=== PATIENT | male | born 1935 | race Caucasian/White ===

== ENCOUNTER 2019-10-29 08:21 | Outpatient (CLI) | payer MEDICARE, OTHER, SELFPAY ==
--- NOTE | 2019-10-29 08:45 | USCV_ITS ---
Artie Abraham Age: 84 Gender: M : 1935 Exam Date: 10/29/2019 08:49 Ordering Phys: Eliane العلي MD ([email or web address]) Technologist: Ilene Guaman [place] [facility] [place]: asymptomatic bilateral carotid stenosis Risk Factors: None Previous Vascular Surgery: None Right Brachial BP: / Left Brachial BP: / Right Left Velocity (cm/s) Spectral Plaque Velocity (cm/s) Spectral Plaque Syst/Diast Broadening Syst/Diast Broadening 102.50/15.40 Prox CCA 51.90 / 7.90 55.20/ 12.40 Mid CCA 30.30 / 7.70 55.20/ 10.90 Homo Distal CCA 29.50 / 5.60 76.10/ 20.50 Homo Prox ICA 28.00 / 7.80 Hetro 79.80/ 20.50 Mid ICA 80.20 / 23.00 52.50/ 15.30 Distal ICA 46.20 / 15.60 103.90 Homo ECA 89.70 Homo 0.78 ICA/CCA 1.54 Antegrade Vertebral Antegrade 28.20/ 4.30 cm/s 39.00/ 9.90 cm/s Tri Subclavian Tri 73.80 80.20 FINDINGS Moderate heterogeneous plaques at the bifurcations and proximal internal carotid arteries bilaterally. Intimal thickening in the common carotid arteries bilaterally Antegrade flow in the vertebral arteries bilaterally Normal Doppler flow velocities in the external carotid arteries bilaterally CONCLUSIONS Moderate heterogeneous plaques at the bifurcations and proximal internal carotid arteries bilaterally with velocity elevation consistent with 16-49% stenosis. Intimal thickening in the common carotid arteries bilaterally Compared to the study from 08/21/2017, there may not be a significant change Dr Eliane العلي MD [facility] (Electronically Signed) Final Date: 30 October 2019 09:50 S
[2019-12-02 16:23] LABS: Blood Urea Nitrogen 11 mg/dL (8-23)
== END 2019-10-29 08:22 | disposition home or self-care (01) ==
LOC: RAD 08:22
PROVIDERS: Family Provider Nurse Practitioner Family; PCP Nurse Practitioner Family; Visit Provider Internal Medicine Cardiovascular Disease
DX: I65.23 Occlusion and stenosis of bilateral carotid arteries (principal)
CPT/HCPCS: 93880

== ENCOUNTER 2019-11-25 06:25 | Day surgery (SDC) | payer MEDICARE, OTHER, SELFPAY ==
[2019-11-22 10:33] VITALS: BMI 25.0
--- NOTE | 2019-11-22 10:37 | ECG_ITS ---
Measurements Intervals [place] Rate: 82 P: 71 IN: 200 QRS: -41 QRSD: 95 T: 70 QT: 357 QTc: 419 SINUS RHYTHM MARKED LEFT AXIS DEVIATION [QRS AXIS < -30] NONSPECIFIC T-WAVE ABNORMALITY No previous ECG available for comparison Electronically Signed On 11-22-2019 15:55:59 PROJECT INSPECTOR by Paco Quezada M.D. [email or web address]
[2019-11-25] VITALS (20 sets, daily range): BP systolic 108–164; BP diastolic 56–113; PULSE 61–93; RESP 13–21; TEMP 36.1–36.6; O2SAT 89–100
[2019-11-25] MEDS: sodium chloride 0.9% 1,000 ML 30 ML IV (06:50)
--- NOTE | 2019-11-25 06:53 | ANES.PREANE2 ---
Pre-Anesthetic Assessment Pre-Anesthetic Assessment: Height/Weight: Height 1.65 m Weight 68.039 kg Temp Pulse Resp BP Pulse Ox 97.9 F 74 18 125/75 94 11/25/19 06:27 11/25/19 06:27 11/25/19 06:27 11/25/19 06:27 11/25/19 06:27 Preop Diagnosis: Recurrent right inguinal hernia Proposed Procedure: Operation Date: 11/25/19 08:00 Proposed Procedures p Laparoscopic poss open Inguinal Hernia Repair w/Mesh 88815 K40.91(Right) - Alonso Freeman MD Last intake: Intake Last Liquid Date 11/24/19 Last Solid Date 11/24/19 Social: Packs per day: 1/2 Pack years: 55 Exam: Pre-Anes Outpt Exam: alert, oriented x 3, clear to auscultation bilaterally and regular rate & rhythm Airway: Submandibular: WNL Cervical ROM: Other MP: 2 Dentition: False Pulmonary: Pulmonary: COPD Comments: breathing feels good CV/HEM: CV/HEM: HTN : Comments: BPH Metabolic: Metabolic: Hyperlipidemia Musc/skel: Musc/skel: Lower Back Pain Anesthetic Plan: ASA status: II Anesthesia: General PFSH Anesthesia PFSH: Social History Smoking and tobacco status: current every day smoker Alcohol intake: never Lives independently: Yes Household members: none Marital status: Current occupational status: retired Data Anesthesia Cardiac Studies: No Data to Display
[2019-11-25] MEDS: famotidine 20 mg/2 mL INJ IVP (07:31)
--- NOTE | 2019-11-25 08:12 | PM.HPUD ---
H&P update H&P Update: DATE OF SURGERY/PROCEDURE: 11/25/19 DATE H&P PERFORMED: 11/18/19 H&P UPDATE INFORMATION: H&P completed within last 30 days and No changes to prior documentation PLANNED PROCEDURE: Operation Date: 11/25/19 08:00 Proposed Procedures p Laparoscopic poss open Inguinal Hernia Repair w/Mesh 29442 K40.91(Right) - Alonso Freeman MD Full H&P Perinent History: Medical/Surgical History: Medical History (Updated 11/18/19 @ 14:05 by Alonso Freeman MD) BPH (benign prostatic hyperplasia) (Acute) Hyperlipidemia (Acute) Hypertension (Acute) Family History: Family History (Updated 11/18/19 @ 13:41 by Abimbola Wesley LPN) Other Diabetes Denies family history of Anesthesia complication Bleeding disorder Social History: Social History Smoking and tobacco status: current every day smoker Alcohol intake: never Lives independently: Yes Household members: none Marital status: Current occupational status: retired
--- NOTE | 2019-11-25 09:55 | PM.OP ---
Operative Report Date of procedure: November 25, 2019 Pre-op Diagnosis: Recurrent right inguinal hernia Post-op Diagnosis: Recurrent incarcerated indirect right inguinal hernia Procedure Done: Laparoscopic total extraperitoneal repair of recurrent incarcerated right inguinal hernia with ultra Pro mesh Implants: Ultra Pro 15 x 10 cm mesh Pathology: none sent Surgeon: Alonso Freeman Anesthesia: General Estimated blood loss (mL): 10 Condition: stable Disposition: PACU Procedure: The patient was taken to the operating room. After IV antibiotic was administered, the abdomen was prepped and draped in a sterile manner. Using a 15 blade, a 1.0 cm transverse incision was made infraumbilically on the right side. Subcutaneous tissue was divided using electrocautery and the anterior rectus sheath divided using an 11 blade. The rectus muscle was retracted laterally and the extraperitoneal space identified. A 11 mm port was placed and 12 mm of pneumoperitoneum was created. A 10 mm 30? scope was introduced and the retrorectus space was opened using the camera up to the pubic symphysis and 5 mm ports were placed in the midline, one 2-fingerbreadths above the pubic symphysis and the other midway between these two ports under direct visualization. Blunt dissection was carried out to open up the tissue in the midline and to the pubic symphysis, which was identified. The dissection was then carried laterally where the iliopubic tract was identified. There was no femoral, obturator or direct hernia noted. The inferior epigastric artery was identified and dissection was carried posterior to it and laterally, the space was opened up to the level of the umbilicus superior to the anterior superior iliac spine. I then proceeded to dissect out the spermatic cord and the indirect hernial sac which was incarcerated was reduced . There was a small opening in the peritoneum and a Verres needle was placed in the right upper quadrant to decompress the abdominal cavity. 15 x 10cm Ultrapro mesh was rolled and introduced through the 10 mm port and then rolled laterally and apposed well against the abdominal wall to cover the myopectineal orifice completely. The mesh was secured in place using secure straps. The extraperitoneal space was desufflated under direct visualization to ensure no slippage of hernial sac under the mesh. All ports were removed, the anterior rectus fascia at the infraumbilical port closed using figure of eight 0 Vicryl sutures, subcutaneous tissue approximated using 3-0 Vicryl sutures and skin at all three port sites were closed using running subcuticular 4-0 Monocryl sutures and Dermabond. 10 mL of 0.5% Marcaine was infiltrated at the port sites. The patient was stable throughout the procedure.
--- NOTE | 2019-11-25 10:19 | SUR.PHASEI ---
PT AWAKES EASILY ON RA NO DISTRESS ABD SOFT AND SITES D/I
[2019-11-25] MEDS: fentaNYL 50 mcg/mL INJ 2mL IVP ×2 (10:34→10:39)
[2019-11-25] MEDS: morphine 4 mg/mL SDV 1 mL 2 MG IVP (10:43)
--- NOTE | 2019-11-25 11:12 | SUR.PHASEI ---
PT AWAKE ALERT NO DISTRESS, SATS 94% ON RA PT REQUESTS DR STREETER TO SIP ON FAMILY IN ROOM.
[2019-11-25] MEDS: HYDROcodone-acetaminophen 5-325 mg Tablet 1 TAB PO (11:17)
== END 2019-11-25 12:00 | disposition home or self-care (01) ==
PROVIDERS: Family Provider Nurse Practitioner Family; PCP Nurse Practitioner Family; Visit Provider Surgery
PROC: (CPT 49650; principal; 2019-11-25 08:00)
DX: K40.31 Unilateral inguinal hernia, with obstruction, without gangrene, recurrent (principal); Z79.82 Long term (current) use of aspirin; N40.0 Benign prostatic hyperplasia without lower urinary tract symptoms; E78.5 Hyperlipidemia, unspecified; I10 Essential (primary) hypertension; Z83.3 Family history of diabetes mellitus; F17.210 Nicotine dependence, cigarettes, uncomplicated
CPT/HCPCS: 49651; 12345; 93005; 96374; J0690; J2001; J2270; J2370; J2405; J2704; J3010; J3490; J7030

== ENCOUNTER 2019-12-01 17:18 | Emergency (ER) | payer MEDICARE, OTHER, SELFPAY ==
[2019-12-01 17:26] VITALS: BP 129/83; PULSE 125; RESP 16; TEMP 36.9; O2SAT 96; BMI 25.0
--- NOTE | 2019-12-01 17:33 | ED_ITS ---
Entered by Deepti Parrish, acting as scribe for HPI - General Adult General: Chief complaint: General Medical Stated complaint: surgery complication Time Seen by Provider: 12/01/19 17:36 History of Present Illness: HPI narrative: 84 yo female presents with surgery complications. Pt states that he had a hernia repair done on Monday. Pt states that he coughed on Monday, felt something pop and has pain now. Pt states that he as major bruising. Pt states that he is urinating like normal. MD complaint: surgery complications. Onset (ago): day(s) Location: genitals Radiation: non-radiation Severity: moderate Quality: aching Pain Consistency: constant Relieving factors: none Exacerbating factors: none Associated symptoms: Reports other (bruising); Deny chest pain, diaphoresis, dyspnea, malaise, rash, palpitations or syncope Review of Systems Const: Denies: fever, chills, body aches, change in appetite, change in weight, malaise, night sweats, diaphoresis or change in sleep pattern Eyes: Denies: change in vision, blurry vision, blind spots, photophobia, eye discomfort, eye discharge, eye redness, yellow eyes or dry eyes ENMT: Denies: throat pain, uvular edema, enlarged tonsils, painful swallowing, hoarseness, mouth pain, swelling of lips/tongue, oral sores/lesions or bleeding gums Card: Denies: chest pain, palpitations, irregular heart rhythm, edema, swelling of feet/ankles, lightheadedness, syncope, pre-syncope or shortness of breath on exertion Resp: Denies: shortness of breath, productive cough, non-productive cough or wheezing : Reports: genital pain, scrotal swelling and other (bruising) Skin/Breast: Denies: rash, itching, redness, sensitivity to light, skin pain or skin tenderness Neuro: Denies: lack of coordination, difficulty walking, frequent falls, dizziness or vertigo Psych: Denies: sleeping more, hopelessness or loss of interest Endo: Denies: excessive urination, excessive thirst or tired all the time PFSH ED PFSH: Statuses (acute, chronic, etc) shown below reflect problem list status as previously entered and may not be historically accurate Medical History BPH (benign prostatic hyperplasia) (Acute) Hyperlipidemia (Acute) Hypertension (Acute) Surgical History H/O bilateral inguinal hernia repair (Acute) H/O colonoscopy (Acute) long time ago History of corneal transplant (Acute) History of hemorrhoidectomy (Acute) History of knee surgery (Acute) Right knee replacement History of shoulder surgery (Acute) Right Status post right inguinal hernia repair (Acute) 11/25/2019: Laparoscopic repair of recurrent right inguinal hernia Family History Other Diabetes Denies family history of Anesthesia complication Bleeding disorder Social History Smoking and tobacco status: current every day smoker Alcohol intake: never Lives independently: Yes Household members: none Marital status: Current occupational status: retired Physical Exam HENMT: THROAT: no uvular edema Neck/C-Spine: COMMON NORMALS: no JVD Chest: COMMONS NORMALS: inspection of chest normal Resp: COMMON NORMALS: normal respiratory effort Cardio: COMMON NORMALS: no JVD, regular rate and regular rhythm RATE: regular rate RHYTHM: regular rhythm GI: COMMON NORMALS: normal to inspection, nondistended, normoactive bowel sounds : MALE GROIN/PERINEUM EXAM: Yes ecchymosis PENIS: ecchymosis TESTES: Yes testicular swelling Course ED course: Patient was examined in room 13, daughter in law at bedside. he is having no urinary problems. He does have discomfort that began on Monday after coughing. He has significant erythema. Dr Freeman was contacted by phone and has requested patient call in the morning for appointment tomorrow. Discussed with family who states patient will need something else for pain. Vital Signs: Vital signs: Vital Signs Temperature 98.5 F 12/01/19 17:26 Pulse Rate 125 H 12/01/19 17:26 Respiratory Rate 18 12/01/19 17:48 Blood Pressure 129/83 12/01/19 17:26 Pulse Oximetry 96 12/01/19 17:48 Discharge Plan Discharge Patient Disposition: Home, Self-Care Clinical Impression: Status post right inguinal hernia repair Condition: Stable Prescriptions: New hydrocodone-acetaminophen 7.5-325 mg tablet 1 tab PO Q8H PRN (Reason: pain) Qty: 7 RF: 0 No Action finasteride 5 mg tablet 5 mg PO QDAY RF: 0 lisinopril 20 mg tablet 20 mg PO QDAY RF: 0 pravastatin [Pravachol] 20 mg tablet 20 mg PO QDAY RF: 0 tramadol 50 mg tablet 50 mg PO QDAY RF: 0 aspirin [Adult Low Dose Aspirin] 81 mg tablet,delayed release (DR/EC) 81 mg PO QDAY RF: 0 omega-3 fatty acids 1,000 mg capsule 1,000 mg PO QDAY RF: 0 tamsulosin 0.4 mg capsule 0.4 mg PO BID Qty: 60 RF: 12 Roosevelt 5-325 mg tablet 1 tab PO Q6H 7 Days Qty: 20 RF: 0 Colace 100 mg capsule 100 mg PO BID Qty: 30 RF: 0 Discharge Orders: Discharge Order (Routine); Ordered 12/01/19 Ordered By: Sharona Whittington Referrals: Dakota Hyatt, NUT [employer]READER [Primary Care Provider] - Discharge Diet: Usual diet Discharge Activity: Limit activity as instructed Activity Restrictions/Additional Instructions: Patient is to contact Dr Brown office in the AM for appointment tomorrow. Use ice for swelling. Coding Level of Care Code ED Food Stylist for Chg Fwd The documentation recorded by the Francois wong Kialy, accurately reflects the service I personally performed and the decisions made by Pk torres Connie,
--- NOTE | 2019-12-01 17:45 | PC.NURSE ---
pt has hematoma at surgery site
[2019-12-01 17:48] VITALS: RESP 18; O2SAT 96
[2019-12-01] MEDS: morphine 4 mg/mL SDV 1 mL 2 MG IVP (17:48)
[2019-12-01] MEDS: ondansetron 2 mg/ML SDV 2 mL 4 MG IVP (17:48)
[2019-12-01 18:08] VITALS: BP 136/68; PULSE 92; RESP 18; O2SAT 93
== END 2019-12-01 18:09 | disposition home or self-care (01) ==
LOC: ER 18:44
PROVIDERS: Emergency Provider Emergency Medicine Emergency Medical Services; Family Provider Nurse Practitioner Family; PCP Nurse Practitioner Family
DX: G89.18 Other acute postprocedural pain (principal); Z98.890 Other specified postprocedural states; Z79.82 Long term (current) use of aspirin; E78.5 Hyperlipidemia, unspecified; I10 Essential (primary) hypertension; F17.210 Nicotine dependence, cigarettes, uncomplicated
CPT/HCPCS: 96374; 96375; 99281; 99282; 99283; J2270; J2405

== ENCOUNTER 2019-12-02 15:10 | Outpatient (CLI) | payer MEDICARE, OTHER, SELFPAY ==
--- NOTE | 2019-12-02 | CT_ITS ---
WS: [id number] CT ABDOMEN PELVIS TECHNIQUE: Contrast-enhanced CT of the abdomen and pelvis with coronal and sagittal reformatted image s. CLINICAL INFORMATION: PAIN S/P RIGHT INGUINAL HERNIA REPAIR COMPARISON: None. DLP: 575.[address] scans at [facility] use at least one of these dose optimization techniques: automat ed exposure control; mA and/or kV adjustment per patient size (includes targeted exams where dose is matched to clinical indication); or iterative reconstruction. FINDINGS: Diffuse fatty infiltration of the liver. Normal portal vein and splenic vein. Normal spleen. Normal g astroesophageal junction. Bibasilar atelectasis. Subcutaneous emphysema along the right greater than left lower chest wall and upper abdomen. This is likely related to recent surgery. No visualized pneu mothorax in the lung bases. Recent postoperative changes right inguinal hernia repair. Fluid and blood products along the right i nguinal canal and scrotal sac some of which is likely postoperative in nature. Somewhat prominent hem atoma along the right proximal inguinal canal. No visualized herniated bowel. No subcutaneous fluid c ollections. Adrenal glands are normal. Normal renal parenchymal enhancement. No hydronephrosis. Normal spleen. No rmal gastroesophageal junction. Mild pancreatic fatty atrophy. Aortic calcification. Small infrarenal abdominal aortic aneurysm measuring 2.6 cm in AP dimension. Sigmoid constipation. Diverticulosis. No evidence of acute diverticulitis. No evidence of small or large bowel obstruction. Tiny fat-containing umbilical hernia. Normal appendi x in the right lower quadrant. Chronic compression of the L4 superior endplate with endplate Schmorl' s node is unchanged since the prior MRI in 2012. There is an enhancing enlarged prostate. Recommend c orrelation PSA. Message left for Alonso Freeman MD at 12/02/2019 5:[address]/CT abdomen pelvis w con* [id number] IMPRESSION: 1. Recent postoperative changes right inguinal hernia repair. 2. Fluid with blood products and hematoma along the inguinal canal extending i nto the scrotal sac. Some of this is likely postoperative in etiology consideri ng recent surgery. There is Notable prominent hematoma along the proximal ingui nal canal. No herniated bowel. 3. Bibasilar atelectasis. 4. Small amount of subcutaneous air along the right greater than left lower ch est wall and upper abdomen also likely postoperative. No pneumothorax. 5. Small infrarenal abdominal aortic aneurysm measuring 2.6 cm in AP dimension . 6. No hydronephrosis in either kidney. 7. Heterogeneously enhancing slightly enlarged prostate measuring 3.7 x 4.8 cm . Recommend correlation PSA.
[2019-12-02] MEDS: iohexol 300 mg/mL 100 mL Btl IV (16:38)
== END 2019-12-02 15:11 | disposition home or self-care (01) ==
LOC: RADWPI 15:20
PROVIDERS: Family Provider Nurse Practitioner Family; PCP Nurse Practitioner Family; Visit Provider Surgery
DX: T81.89XA Other complications of procedures, not elsewhere classified, initial encounter (principal); G89.18 Other acute postprocedural pain; J98.11 Atelectasis; I71.4 Abdominal aortic aneurysm, without rupture; N40.0 Benign prostatic hyperplasia without lower urinary tract symptoms
CPT/HCPCS: 36415; 74177; 82565; 84520

== ENCOUNTER → 2020-01-01 11:01 | Outpatient (BNVA) | payer MEDICARE, OTHER, SELFPAY | PROVIDERS: Family Provider Nurse Practitioner Family; PCP Nurse Practitioner Family; Visit Provider Urology | DX: N40.0 Benign prostatic hyperplasia without lower urinary tract symptoms (principal); N40.1 Benign prostatic hyperplasia with lower urinary tract symptoms; R31.0 Gross hematuria | CPT/HCPCS: 81001 ==

== ENCOUNTER → 2020-03-23 10:14 | Outpatient (BNVA) | payer MEDICARE, OTHER, SELFPAY | PROVIDERS: Family Provider Nurse Practitioner Family; PCP Nurse Practitioner Family; Visit Provider Internal Medicine Cardiovascular Disease | DX: E78.5 Hyperlipidemia, unspecified (principal); I25.10 Atherosclerotic heart disease of native coronary artery without angina pectoris; I77.810 Thoracic aortic ectasia; I10 Essential (primary) hypertension; I65.23 Occlusion and stenosis of bilateral carotid arteries | CPT/HCPCS: 80061 ==

== ENCOUNTER → 2021-04-20 10:37 | Outpatient (BNVA) | payer MEDICARE, OTHER, SELFPAY | PROVIDERS: Family Provider Nurse Practitioner Family; PCP Nurse Practitioner Family; Visit Provider Internal Medicine Cardiovascular Disease | DX: E78.5 Hyperlipidemia, unspecified (principal); E87.5 Hyperkalemia; R06.02 Shortness of breath; R07.9 Chest pain, unspecified | CPT/HCPCS: 80048 ==

== ENCOUNTER → 2021-09-08 10:39 | Outpatient (BNVA) | payer MEDICARE, OTHER, SELFPAY | PROVIDERS: Family Provider Nurse Practitioner Family; PCP Nurse Practitioner Family; Visit Provider Urology | DX: N40.1 Benign prostatic hyperplasia with lower urinary tract symptoms (principal); R97.20 Elevated prostate specific antigen [PSA] | CPT/HCPCS: 81003; 84153 ==

== ENCOUNTER → 2021-11-30 09:21 | Outpatient (BNVA) | payer MEDICARE, OTHER, SELFPAY | PROVIDERS: Family Provider Nurse Practitioner Family; PCP Family Medicine; Visit Provider Urology | DX: R97.20 Elevated prostate specific antigen [PSA] (principal) | CPT/HCPCS: 84153 ==

== ENCOUNTER → 2021-12-07 10:16 | Outpatient (BNVA) | payer MEDICARE, OTHER, SELFPAY | PROVIDERS: Family Provider Nurse Practitioner Family; PCP Family Medicine; Visit Provider Urology | DX: N40.1 Benign prostatic hyperplasia with lower urinary tract symptoms (principal); R97.20 Elevated prostate specific antigen [PSA]; R39.89 Other symptoms and signs involving the genitourinary system | CPT/HCPCS: 81003 ==

== ENCOUNTER 2022-03-24 09:20 | Outpatient (CLI) | payer MEDICARE, OTHER, SELFPAY | END 2022-03-24 09:21 | disposition home or self-care (01) | LOC: LAB 09:22 | PROVIDERS: PCP Family Medicine; Visit Provider Urology | DX: R97.20 Elevated prostate specific antigen [PSA] (principal) | CPT/HCPCS: 84153 ==

== ENCOUNTER → 2022-03-31 09:42 | Outpatient (BNVA) | payer MEDICARE, OTHER, SELFPAY | PROVIDERS: PCP Family Medicine; Visit Provider Urology | DX: N40.1 Benign prostatic hyperplasia with lower urinary tract symptoms (principal); R39.89 Other symptoms and signs involving the genitourinary system; R97.20 Elevated prostate specific antigen [PSA] | CPT/HCPCS: 81003; 99213 ==

== ENCOUNTER → 2022-07-21 10:01 | Outpatient (BNVA) | payer MEDICARE, OTHER, SELFPAY | PROVIDERS: PCP Family Medicine; Visit Provider Family Medicine | DX: R97.20 Elevated prostate specific antigen [PSA] (principal); R31.0 Gross hematuria | CPT/HCPCS: 84153 ==

== ENCOUNTER → 2022-07-28 09:42 | Outpatient (BNVA) | payer MEDICARE, OTHER, SELFPAY | PROVIDERS: PCP Family Medicine; Visit Provider Urology | DX: N40.1 Benign prostatic hyperplasia with lower urinary tract symptoms (principal); R31.0 Gross hematuria; R97.20 Elevated prostate specific antigen [PSA]; R39.89 Other symptoms and signs involving the genitourinary system | CPT/HCPCS: 81003; 99213 ==

== ENCOUNTER → 2022-10-18 10:21 | Outpatient (BNVA) | payer MEDICARE, OTHER, SELFPAY | PROVIDERS: PCP Family Medicine; Visit Provider Family Medicine | DX: R97.20 Elevated prostate specific antigen [PSA] (principal); E87.5 Hyperkalemia; E78.5 Hyperlipidemia, unspecified; I10 Essential (primary) hypertension; Z00.00 Encounter for general adult medical examination without abnormal findings; I25.10 Atherosclerotic heart disease of native coronary artery without angina pectoris | CPT/HCPCS: 80053; 80061; 83690; 85025; 86140 ==

== ENCOUNTER → 2022-10-26 10:26 | Outpatient (BNVA) | payer MEDICARE, OTHER, SELFPAY | PROVIDERS: PCP Family Medicine; Visit Provider Internal Medicine Cardiovascular Disease | DX: I25.10 Atherosclerotic heart disease of native coronary artery without angina pectoris (principal); I65.23 Occlusion and stenosis of bilateral carotid arteries; I10 Essential (primary) hypertension; E78.5 Hyperlipidemia, unspecified; I77.810 Thoracic aortic ectasia; F17.200 Nicotine dependence, unspecified, uncomplicated | CPT/HCPCS: 99214 ==

== ENCOUNTER 2022-11-04 11:36 | Outpatient (CLI) | payer MEDICARE, OTHER, SELFPAY ==
--- NOTE | 2022-11-04 12:00 | USCV_ITS ---
Artie Abraham Age: 87 Gender: M : 1935 Exam Date: 11/04/2022 11:51 Ordering Phys: Eliane العلي MD ([email or web address]) Technologist: [place] [facility] [place]: cca disease Risk Factors: Previous Vascular Surgery: Right Brachial BP: / Left Brachial BP: / Right Left Velocity (cm/s) Spectral Plaque Velocity (cm/s) Spectral Plaque Syst/Diast Broadening Syst/Diast Broadening 53.75/ 9.90 Prox CCA 44.20 / 7.10 48.15/ 10.05 Mid CCA 48.60 / 5.30 53.95/ 9.35 Hetro Distal CCA 48.60 / 7.10 Hetro 70.50/ 15.60 Hetro Prox ICA 53.10 / 10.60 Hetro 72.70/ 18.50 Mid ICA 71.60 / 14.20 64.50/ 13.40 Distal ICA 64.60 / 14.20 75.95 ECA 82.30 1.42 ICA/CCA 1.47 Antegrade Vertebral Antegrade 22.30/ 4.70 cm/s 48.90/ 12.60 cm/s Bi Subclavian Bi 61.90 69.00 FINDINGS Comparison:. 10/29/19. No significant elevation of systolic or diastolic velocities. Mild blunting of the waveforms. Moderate bilateral carotid atherosclersis. Antegrade vertebral arteries. CONCLUSIONS Bilateral ICA stenosis less than 50%. Moderate carotid atherosclerosis. Mild progression since 2019. Dr. Yoko Cooper DO (Electronically Signed) Final Date: 08 November 2022 15:54 S
== END 2022-11-04 11:37 | disposition home or self-care (01) ==
LOC: RAD 11:38
PROVIDERS: PCP Family Medicine; Visit Provider Internal Medicine Cardiovascular Disease
DX: I65.23 Occlusion and stenosis of bilateral carotid arteries (principal); I77.9 Disorder of arteries and arterioles, unspecified
CPT/HCPCS: 93880

== ENCOUNTER → 2022-12-05 10:00 | Outpatient (BNVA) | payer MEDICARE, OTHER, SELFPAY | PROVIDERS: PCP Family Medicine; Visit Provider Family Medicine | DX: R97.20 Elevated prostate specific antigen [PSA] (principal); R31.0 Gross hematuria | CPT/HCPCS: 84153 ==

== ENCOUNTER → 2022-12-13 10:30 | Outpatient (BNVA) | payer MEDICARE, OTHER, SELFPAY | PROVIDERS: PCP Family Medicine; Visit Provider Urology | DX: R31.0 Gross hematuria (principal); N40.1 Benign prostatic hyperplasia with lower urinary tract symptoms; N13.8 Other obstructive and reflux uropathy; R97.20 Elevated prostate specific antigen [PSA] | CPT/HCPCS: 51798; 99214 ==

== ENCOUNTER 2023-03-15 11:00 | Outpatient (CLI) | payer MEDICARE, OTHER, SELFPAY ==
--- NOTE | 2023-03-15 11:14 | XRR_ITS ---
PROCEDURE INFORMATION: Exam: XR Chest Exam date and time: 03/15/2023 11:40 AM Age: 88 years old Clinical indication: Condition or disease; Lung condition and disease; Copd; Complications not specified; Cough; Patient HX: HX of prostate cancer TECHNIQUE: Imaging protocol: Radiologic exam of the chest. Views: 2 views. COMPARISON: CR XR chest 2V* [id number] 05/02/2016 9:30 AM FINDINGS: Lungs: Unremarkable. No consolidation. Pleural spaces: Unremarkable. No pleural effusion. No pneumothorax. Heart/Mediastinum: Unremarkable. No cardiomegaly. Bones/joints: Unremarkable. XR/XR chest 2V* [id number] IMPRESSION: No acute findings.
== END 2023-03-15 11:01 | disposition home or self-care (01) ==
LOC: RAD 11:05
PROVIDERS: PCP Family Medicine; Visit Provider Family Medicine
DX: R05.9 Cough, unspecified (principal); E55.9 Vitamin D deficiency, unspecified; E53.8 Deficiency of other specified B group vitamins; Z51.81 Encounter for therapeutic drug level monitoring
CPT/HCPCS: 71046; 80053; 82306; 82607; 83880; 85025; 86141

== ENCOUNTER → 2023-03-30 08:36 | Outpatient (BNVA) | payer MEDICARE, OTHER, SELFPAY | PROVIDERS: PCP Family Medicine; Visit Provider Urology | DX: N40.1 Benign prostatic hyperplasia with lower urinary tract symptoms (principal); N13.8 Other obstructive and reflux uropathy; R97.20 Elevated prostate specific antigen [PSA]; R39.89 Other symptoms and signs involving the genitourinary system | CPT/HCPCS: 36415; 51798; 81003; 84153; 99213 ==

== ENCOUNTER → 2023-05-04 11:09 | Outpatient (BNVA) | payer MEDICARE, OTHER, SELFPAY | PROVIDERS: PCP Family Medicine; Visit Provider Family Medicine | DX: N40.1 Benign prostatic hyperplasia with lower urinary tract symptoms (principal); R97.20 Elevated prostate specific antigen [PSA]; Z51.81 Encounter for therapeutic drug level monitoring | CPT/HCPCS: 80053; 84153; 85025 ==

== ENCOUNTER → 2023-05-10 09:36 | Outpatient (BNVA) | payer MEDICARE, OTHER, SELFPAY | PROVIDERS: PCP Family Medicine; Visit Provider Internal Medicine Cardiovascular Disease | DX: I10 Essential (primary) hypertension | CPT/HCPCS: 36415; 83880 ==

== ENCOUNTER → 2023-05-10 10:32 | Outpatient (BNVA) | payer MEDICARE, OTHER, SELFPAY | PROVIDERS: PCP Family Medicine; Visit Provider Family Medicine | DX: R07.9 Chest pain, unspecified (principal); I10 Essential (primary) hypertension; I25.10 Atherosclerotic heart disease of native coronary artery without angina pectoris; R97.20 Elevated prostate specific antigen [PSA]; I35.1 Nonrheumatic aortic (valve) insufficiency; I65.23 Occlusion and stenosis of bilateral carotid arteries; E78.5 Hyperlipidemia, unspecified; I77.810 Thoracic aortic ectasia | CPT/HCPCS: 93005; 99214 ==

== ENCOUNTER 2023-05-22 09:28 | Outpatient (CLI) | payer MEDICARE, OTHER, SELFPAY ==
[2023-05-22 10:40] LABS: NT Pro B Type Natriuretic Pept 477 pg/mL (0-450)
== END 2023-05-22 09:29 | disposition home or self-care (01) ==
PROVIDERS: PCP Family Medicine; Visit Provider Internal Medicine Cardiovascular Disease
DX: I10 Essential (primary) hypertension (principal)
CPT/HCPCS: 36415; 83880

== ENCOUNTER 2023-05-30 08:40 | Outpatient (CLI) | payer MEDICARE, OTHER, SELFPAY ==
--- NOTE | 2023-05-30 09:30 | USCV_ITS ---
Artie Abraham Age: 88 Gender: M : 1935 Exam Date: 05/30/2023 08:50 Ordering Phys: Eliane العلي MD ([email or web address]) Technologist: Kandy Peng [place] [facility] [place]: DILATED AO ROOT BP: 130 / 70 HR: 82 Rhythm: Sinus Technical Quality: Adequate MEASUREMENTS (Male / Female) Normal Values 2D ECHO LV Diastolic Diameter PLAX 5.0 cm 4.2 - 5.9 / 3.9 - 5.3 cm LV Systolic Diameter PLAX 4.5 cm LV Chamber Size 3.9 cm IVS Diastolic Thickness 1.0 cm 0.6 - 1.0 / 0.6 - 0.9 cm IVS Systolic Thickness 1.3 cm LVPW Diastolic Thickness 1.1 cm 0.6 - 1.0 / 0.6 - 0.9 cm LVPW Systolic Thickness 1.2 cm RV Chamber Size 3.1 cm LVOT Diameter 2.0 cm LV Ejection Fraction 2D Teich 23.0 % LV Ejection Fraction MOD 2C 50.1 % LV Ejection Fraction 2C AL 50.5 % LA Diameter 4.1 cm LA Width 3.4 cm LA Height 3.9 cm RA Width 3.4 cm RA Height 4.3 cm Aorta at Sinotubular Diameter 4.0 cm IVC Diameter 1.7 cm M-MODE Aortic Annulus Diameter 4.0 cm LA Ao Ratio MM 1.3 MV E Point Septal Separation 1.0 cm DOPPLER AV Peak Velocity 152.3 cm/s LVOT Peak Velocity 79.3 cm/s AV Area Cont Eq vti 1.7 cm squared AV Area Cont Eq pk 1.7 cm squared MV Area PHT 4.9 cm squared Mitral E to A Ratio 0.6 MV E' Velocity 33.0 cm/s Mitral E to MV E' Ratio 12.7 Mitral E to LV E' Lateral Ratio 11.9 Mitral E to LV E' Septal Ratio 13.5 TR Peak Velocity 122.5 cm/s TR Peak Gradient 6.0 mmHg TR Mean Velocity 69.6 cm/s TR Mean Gradient 2.4 mmHg TR Velocity Time Integral 22.0 cm TV Peak E Velocity 51.0 cm/s Right Atrial Pressure 3.0 mmHg Pulmonary Artery Systolic Pressu 9.0 mmHg RV Acceleration Time 0.1 s RV Ejection Time 0.3 s RV AcT/ET 0.4 FINDINGS Left Ventricle Diffuse hypokinesia of the left ventricular ejection fraction of 45-50%.mild left ventricular hypertrophy. Grade I/IV diastolic dysfunction (abnormal relaxation filling pattern), normal to mildly elevated filling pressures. Right Ventricle The right ventricle is normal in size and function. Right Atrium The right atrium is normal in size. 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 Aortic Valve Thickened aortic valve. Moderate aortic valve regurgitation. Tricuspid Valve No gross abnormalities noted Pulmonic Valve No gross abnormalities no Pericardium No pericardial effusion. Aorta Normal ascending aorta dimension. IVC The inferior vena cava appears normal. CONCLUSIONS Diffuse hypokinesia of the left ventricular ejection fraction of 45-50% (visual) Mild left ventricular hypertrophy. Grade I/IV diastolic dysfunction (abnormal relaxation filling pattern), normal to mildly elevated filling pressures. 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 Thickened mitral valve. Thickened aortic valve. Moderate aortic valve regurgitation. There is no pericardial effusion. There are no intracardiac masses. Compared to the study from 11/29/2013, there is a drop in the ejection fraction from 60% to 45 to 50%. Dr Eliane العلي MD [facility] (Electronically Signed) Final Date: 30 May 2023 18:13 S
== END 2023-05-30 08:41 | disposition home or self-care (01) ==
LOC: RAD 08:44
PROVIDERS: PCP Family Medicine; Visit Provider Internal Medicine Cardiovascular Disease
DX: I08.0 Rheumatic disorders of both mitral and aortic valves (principal); R06.09 Other forms of dyspnea
CPT/HCPCS: 36415; 83880; 93306

== ENCOUNTER 2023-06-30 08:05 | Outpatient (CLI) | payer MEDICARE, OTHER, SELFPAY ==
[2023-06-30 08:37] VITALS: BMI 26.6
--- NOTE | 2023-06-30 08:41 | NMCV_ITS ---
NM dionne perf SPECT r/s* [id number] Artie Abraham Age: 88 Gender: M : 1935 Exam Date: 06/30/2023 09:15 Ordering Phys: Eliane العلي MD ([email or web address]) Technologist: NAKUL Smith Exam Location: [facility] Indications: SHORTNESS OF BREATH, CARDIAC ARRHYTHMIA STRESS TEST Please see separate stress test report in [facility] for full findings IMAGE PROTOCOL Rest/Stress 1 Day Radiopharmaceutical Dose (mCi) Administration Site Administered by Rest: Tc-99m 10.6 IV NAKUL Smith Sestamibi Stress:Tc-99m 32.4 IV NAKUL Smith Sestamibi Rest: 30-Jun-2023 60 Discovery 630 Stress: 30-Jun-2023 30 Discovery 630 0.4mg Lexiscan. Supine position only as patient was unable to lay prone. SPECT RESULTS Technical Quality: Excellent Raw Data Analysis: Normal Image Corrections: No attenuation or motion correction applied Summed Stress Score: 1 Summed Rest Score: 0 Summed Difference Score: 1 PERFUSION FINDINGS A small area of slightly decreased tracer uptake was noted in the mid inferior wall region. Complete reversibility was noted at rest FUNCTIONAL RESULTS (calculated via Gated SPECT) Stress Image LV EF (%): 37 Stress EDV (mL):131 TID: 0.97 Stress ESV (mL):82 FUNCTIONAL FINDINGS: Segmental wall motion analysis revealing diffuse hypokinesia of the left ventricle IMPRESSIONS 1. Myocardial perfusion imaging revealing a small area of reversible defect in the inferior wall region suggesting ischemia in the distribution of the right coronary artery. 2. Diminished LV ejection fraction of 37%. 3. LV wall motion analysis revealing diffuse hypokinesia of the left ventricle. 4. Mildly dilated LV cavity, end-systolic volume of 82 ml. No similar previous studies are available for comparison Dr Eliane العلي MD [facility] (Electronically Signed) Final Date: 30 June 2023 17:41 S
--- NOTE | 2023-06-30 08:41 | ECG_ITS ---
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 Interpretive Statements NAME OF STUDY: LEXISCAN SESTAMIBI STRESS TEST INDICATION: Dyspnea on Exertion, PROCEDURE: At the baseline, the EKG revealed normal sinus rhythm with frequent PACs. Nonspecific T wave changes. The baseline heart was 70 bpm with a blood pressue of 137/70 mm of Hg Lexiscan was infused over a period of 20 seconds. A total of 0.4 milligrams of Lexiscan was infused. The stress phase was continued for a total of 5 minutes. Heart rate at the end of the stress phase was 103 bpm with a blood pressure 132/69 mm of Hg. The EKG at the peak infusion revealed no significant changes. Occasional PVCs were noted on the monitor Sestamibi was injected 20 seconds after the Lexiscan infusion. Heart rate at the end of the recovery phase was 100 and bpm with a blood pressure of 123/65 mm of Hg. CONCLUSION: 1. No significant EKG changes with the LexiScan infusion 2. No LexiScan induced chest pain or cardiac arrhythmia 3. Normal blood pressure and heart rate response 4. Sestamibi/sestamibi perfusion scan pending; see separate report. Electronically Signed On 07-03-2023 8:46:12 CDT by Eliane العلي M.D. [email or web address]
[2023-06-30] MEDS: regadenoson 0.4 Mg/5 ml Syringe IVP (10:37)
[2023-06-30 10:58] VITALS: BP 123/65; PULSE 96
== END 2023-06-30 08:06 | disposition home or self-care (01) ==
LOC: CDL 08:07
PROVIDERS: PCP Family Medicine; Visit Provider Internal Medicine Cardiovascular Disease
DX: I49.9 Cardiac arrhythmia, unspecified (principal); R06.09 Other forms of dyspnea; I65.23 Occlusion and stenosis of bilateral carotid arteries; E78.5 Hyperlipidemia, unspecified; R07.89 Other chest pain
CPT/HCPCS: 36415; 78452; 93017; 96375; A9500; J2785

== ENCOUNTER → 2023-07-04 09:03 | Outpatient (BNVA) | payer MEDICARE, OTHER, SELFPAY | PROVIDERS: PCP Family Medicine; Visit Provider Nurse Practitioner Family | DX: C61 Malignant neoplasm of prostate (principal); R31.0 Gross hematuria | CPT/HCPCS: 84153 ==

== ENCOUNTER → 2023-11-16 15:23 | Outpatient (BNVA) | payer MEDICARE, OTHER, SELFPAY | PROVIDERS: PCP Family Medicine; Visit Provider Internal Medicine Cardiovascular Disease | DX: I25.10 Atherosclerotic heart disease of native coronary artery without angina pectoris (principal); E78.5 Hyperlipidemia, unspecified; I65.23 Occlusion and stenosis of bilateral carotid arteries; I10 Essential (primary) hypertension; I77.810 Thoracic aortic ectasia; R06.09 Other forms of dyspnea; R00.2 Palpitations; I35.1 Nonrheumatic aortic (valve) insufficiency | CPT/HCPCS: 99214 ==

== ENCOUNTER 2024-03-03 15:34 | Emergency (ER) | payer MEDICARE, OTHER, SELFPAY ==
[2024-03-03 15:48] VITALS: BP 114/58; PULSE 87; RESP 17; TEMP 36.4; O2SAT 95; BMI 22.6
--- NOTE | 2024-03-03 15:53 | ECG_ITS ---
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 Measurements Intervals [place] Rate: 80 P: 0 NH: 0 QRS: -59 QRSD: 110 T: 93 QT: 366 QTc: 424 Interpretive Statements Sinus rhythm with a first-degree AV block. Occasional PACs and PVCs. LEFT ANTERIOR FASCICULAR BLOCK [QRS AXIS <= -45, QR IN I, RS IN II] NONSPECIFIC ST & T-WAVE ABNORMALITY Compared to ECG 05/10/2023 10:44:26 Ventricular premature complex(es) now present T-wave abnormality now present ST (T wave) deviation no longer present Electronically Signed On 03-03-2024 22:29:39 CDT by Eliane العلي M.D. [id number]
--- NOTE | 2024-03-03 16:00 | XRR_ITS ---
PROCEDURE INFORMATION: Exam: XR Chest Exam date and time: 03/03/2024 4:22 PM Age: 89 years old Clinical indication: Other: Dizzy; Additional info: Dizziness TECHNIQUE: Imaging protocol: Radiologic exam of the chest. Views: 1 view. COMPARISON: CR XR chest 2V* [id number] 03/15/2023 11:40 AM FINDINGS: Lungs: No focal consolidation. Pleural spaces: No evidence of pneumothorax. No evidence of pleural effusion. Heart/Mediastinum: Questionable aneurysmal dilatation of the thoracic aorta. Cardiomediastinal silhouette is otherwise within normal limits. Bones/joints: No evidence of acute osseous abnormality. XR/XR chest 1V portable [id number] IMPRESSION: 1. No acute cardiopulmonary abnormality. 2. Questionable aneurysmal dilatation of the thoracic aorta. If there is clinical concern for acute aortic pathology, consider correlation with CT.
--- NOTE | 2024-03-03 16:16 | CTR_ITS ---
PROCEDURE INFORMATION: Exam: CT Head Without Contrast Exam date and time: 03/03/2024 4:36 PM Age: 89 years old Clinical indication: Dizziness; Additional info: Headache and dizzy TECHNIQUE: Imaging protocol: Computed tomography of the head without contrast. Radiation optimization: All CT scans at this facility use at least one of these dose optimization techniques: automated exposure control; mA and/or kV adjustment per patient size (includes targeted exams where dose is matched to clinical indication); or iterative reconstruction. COMPARISON: No relevant prior studies available. RADIATION DOSE METRICS: Total DLP (mGy-cm): 1040.88 FINDINGS: Brain: Sequela of moderate chronic microvascular ischemic changes with periventricular and deep white matter hypoattenuation. There are multiple central semiovale, aguilera radiata and basal ganglia lacunar infarcts. Tong-white differentiation is otherwise maintained. No evidence of intra-axial or extra-axial hemorrhage. No mass effect or midline shift. Basilar cisterns are patent. Cerebral ventricles: No hydrocephalus. Paranasal sinuses: The visualized paranasal sinuses are well aerated. Mastoid air cells: The visualized mastoids and middle ears are clear. Bones: Unremarkable. No acute fracture. Soft tissues: No gross soft tissue abnormality. CT/CT head wo con* [id number] IMPRESSION: 1. No acute intracranial abnormality. 2. Chronic microvascular ischemic changes with multiple lacunar infarcts. If there is clinical concern for acute ischemia beyond the window for neuro intervention, consider correlation with MRI.
--- NOTE | 2024-03-03 16:18 | ED_ITS ---
HPI - Dizziness 2 General: Chief Complaint: Dizziness Stated Complaint: dizzy, confusion, weakness Time Seen by Provider: 03/03/24 16:03 Source: patient and family Mode of arrival: ambulatory Limitations: no limitations History of Present Illness: HPI Narrative: This patient was brought to the emergency department because of concerns about episodes of dizziness. He is accompanied by his son who also assists with history. Patient states he had been mowing this morning and then went back inside and did not felt a little tired or ill at ease and got up and went outside and then became dizzy. He states he had some associated nausea and had a headache with that. He denied presyncope he denied any chest pain. He states that the symptoms abated after few minutes. He states he had a prior episode a few weeks ago similarly. He denies any other neurologic symptoms. Son chimes in with the fact that they been gone camping for couple days and he and his father had had some prostate biopsies done recently and received those results and had a catheter and therefore was kind of sitting around the house most the time until he had his catheter removed. States he has been out mowing the acreage over the past 2 days. The patient states he has been drinking some fluids but is uncertain how much in the way of fluids he has been drinking. Does have a history of atrial fibrillation as well as coronary artery disease. He denies any falls or trauma recent upper respiratory infections. 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 MD elicited complaint: dizziness and lightheadedness Severity: moderate Description: lightheadedness Context: change in body position History of similar symptoms: Yes Associated symptoms: Reports no associated symptoms, headache(s) and nausea; Denies chest pain, chills, nasal congestion, palpitations, syncope or vomiting Associated neuro symptoms: Reports no associated symptoms; Deny numbness in extremities Review of Systems 2 Const: Denies: fever(s) or chills Eyes: Denies: change in vision or blurry vision ENMT: Denies: throat pain, odynophagia, nasal discharge, nasal congestion or nasal obstruction Card: Reports: irregular heart rhythm and lightheadedness; Denies: chest pain, palpitations, edema, syncope or pre-syncope Resp: Denies: dyspnea, productive cough or non-productive cough GI: Reports: nausea; Denies: abdominal pain or vomiting Musc: Denies: neck pain, back pain, extremity pain or extremity swelling Skin/Breast: Denies: rash or pruritus Neuro: Reports: headache(s) and dizziness; Denies: numbness in extremities, weakness in extremities, sensory changes, lack of coordination, Slurred speech present or seizure-like activity Psych: Denies: anxiety or depression Endo: Denies: polyuria or polydipsia Nitin/Lymph: Denies: easy bruising PFSH ED 2 PFSH: Medical History Abnormal prostate exam Elevated PSA Dilated aortic root Benign essential HTN Dyslipidemia (high LDL; low HDL) Carotid stenosis Atherosclerosis of coronary artery of [place] heart Cardiac catheterization 2008 revealing mild to moderate CAD CAD (coronary artery disease) Bilateral carotid artery stenosis BPH loc w urin obs/LUTS Hematuria Hyperlipidemia Hypertension Surgical History Status post right inguinal hernia repair 11/25/2019: Laparoscopic repair of recurrent right inguinal hernia H/O bilateral inguinal hernia repair History of knee surgery Right knee replacement History of hemorrhoidectomy History of corneal transplant History of shoulder surgery Right H/O colonoscopy long time ago Family History Father , in his 80's No problems noted. Mother , in her 80's Diabetes Denies family history of CAD (coronary artery disease) Dementia Chronic kidney disease (CKD) Suicide Anesthesia complication Bleeding disorder Lung disease Cancer Stroke Social History Smoking and tobacco/nicotine status: current every day tobacco/nicotine user Alcohol intake: former Substance/Drug Use: never Lives independently: Yes Household members: none Marital status: service: Yes branch: [employer] Current occupational status: retired Physical Exam 2 Narrative: EXAM NARRATIVE: Hard of hearing but is able to communicate when addressed in a loud voice with [id number] talking. Const: COMMON NORMALS: no acute distress, average body habitus, patient oriented x3 and alert GENERAL APPEARANCE: cooperative HENMT: COMMON NORMALS: normocephalic, atraumatic, external ears normal and EAC's normal (Soft wax noted but not impacted) HEAD & SCALP: normal to inspection, normocephalic and atraumatic FACE & SINUS: normal facial exam EXTERNAL EAR: Yes external ears normal EXTERNAL AUDITORY CANAL: EAC's normal (Soft wax noted but not impacted) Eye: COMMON NORMALS: Equal, round and reactive pupils present, EOMs intact bilaterally and conjunctivae normal CONJUNCTIVA: Yes conjunctivae normal P UPIL: Yes Equal, round and reactive pupils present Neck/C-Spine: COMMON NORMALS: full ROM, supple, no JVD and No carotid bruits Chest: COMMONS NORMALS: normal inspection of the chest and normal palpation of entire chest wall Resp: COMMON NORMALS: normal respiratory effort, No retractions, No use of accessory muscles and clear to auscultation bilaterally EFFORT & INSPECTION: Yes able to speak in complete sentences AUSCULTATION: clear to auscultation bilaterally Cardio: COMMON NORMALS: no JVD and No murmurs present (Cardio) RHYTHM: a bnormal rhythm irregularly irregular GI: COMMON NORMALS: Normal to inspection, nondistended, normoactive bowel sounds present, Soft to palpation and non-tender PALPATION: Yes Soft to palpation : COMMON NORMALS: Yes no CVA tenderness BLADDER/KIDNEY EXAM: Yes no CVA tenderness Back/Pelvis: COMMON NORMALS: no CVA tenderness, thoracic and lumbar spine normal to inspection, no thoracic nor lumbar tenderness and thoraco-lumbar ROM normal Extremity: COMMON NORMALS: normal to inspection, full ROM, capillary refill normal, no joint enlargement, no clubbing, cyanosis or edema, no calf tenderness and no pedal edema Neuro: COMMON NORMALS: patient oriented x3, moves all extremities, no focal motor deficits and no sensory deficits noted SENSORIUM/ORIENTATION: Yes alert CRANIAL NERVES: Yes CN normal except as noted COORDINATION/BALANCE: f [id number] test normal and riyq-[id number]-[id number] test normal GAIT: Yes Normal gait present COORDINATION: [id number] test normal and qvfu-ru-ktau test normal Psych: COMMON NORMALS: mental status grossly normal Skin: COMMON NORMALS: no rashes or lesions noted, turgor normal and no jaundice GENERAL SKIN EXAM: no rashes or lesions noted and turgor normal Course 2 Reevaluation(s): Reevaluation #1: The patient subjectively states he feels pretty good not had any more dizziness or other symptoms at this time. IV fluids were infusing. All signs are reassuring. I had the patient's stand up which she did without any difficulty. He walked a few steps and turn around and walk back to the bed without any dizziness difficulty etc. Will go ahead and continue the IV fluid infusion and then have him engage in a more prolonged gait assessment. Time: 18:55 Reevaluation #2: The patient ambulated unaided around the emergency department including to the bathroom and back. He states he did not have any symptoms whatsoever and felt great. He is actively drinking fluids in the emergency department and is ready to go home. Repeat examination reveals reveals him to be alert with normal gait no focal findings on his repeat examination. Vital signs are reassuring. Discussed home care and expected course return precautions with both he and son who is present. Time: 21:10 Vital Signs: Vital signs: Vital Signs Temperature 97.5 F L 03/03/24 15:48 Pulse Rate 90 03/03/24 18:00 Respiratory Rate 17 03/03/24 15:48 Blood Pressure 133/78 03/03/24 18:00 Pulse Oximetry 94 03/03/24 18:00 Oxygen Delivery Me thod Room Air 03/03/24 18:00 MDM - Dizziness Medical Decision Making This patient presented to the emergency department because of dizziness. Episodic and is seem to be related to change in position. Is no associated other focal neurologic symptoms. Also was present who related he has been keeping up with his fluids as the son thought was appropriate and also has been outside in the last 2 days mowing the acreage. 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 Clinical examination revealed no evidence of focality to his neurologic examination with an NIH of 0 and no evidence of discoordination etc. Remainder of his clinical examination revealed decreased skin turgor but otherwise no and no focal findings. A broad differential was entertained to include volume depletion possible sustained arrhythmia, ACS, electrolyte abnormality etc. Certainly has central nervous system etiologies were also entertained but felt to be unlikely given his symptoms and current clinical findings. He received IV fluids and an additional evaluation observation emergency department. His initial troponin was elevated without any acute EKG changes and subsequent troponin was actually a negative delta mitigating against likely ongoing ACS. Likely because of his age as well as his atrial fibrillation he is likely has a chronically elevated and/or potentially episodically elevated troponin which is nonischemic in origin. He had symptomatic improvement without any evidence of sustained vertigo dizziness or orthostatic changes after treatment in the emergency department. He was noted he had a hyponatremia which was trended down from previous sodiums however not in a dangerously concerning will level and certainly in his clinical picture would not warrant additional observation and/or admission. This was all discussed in detail with the patient and his son we encouraged changing in diet to help with increased sodium intake, and ensuring adequate fluid intake as well as close follow-up for repeat metabolic profile. He was stable at the time of discharge and all questions were answered. Lab Data I reviewed the patient's lab results. 03/03/24 16:20 03/03/24 16:20 Radiology Impressions Chest X-Ray 03/03/24 16:00 IMPRESSION: 1. No acute cardiopulmonary abnormality. 2. Questionable aneurysmal dilatation of the thoracic aorta. If there is clinical concern for acute aortic pathology, consider correlation with CT. Head CT 03/03/24 16:16 IMPRESSION: 1. No acute intracranial abnormality. 2. Chronic microvascular ischemic changes with multiple lacunar infarcts. If there is clinical concern for acute ischemia beyond the window for neuro intervention, consider correlation with MRI. Laboratory Results WBC 6.19 10^3/uL (3.29-11.43) 03/03/24 16:20 RBC 4.66 10^6/uL (3.85-5.65) 03/03/24 16:20 Hgb 14.90 g/dL (11.27-16.99) 03/03/24 16:20 Hct 44.9 % (37-53) 03/03/24 16:20 MCV 96.4 fl (82-101) 03/03/24 16:20 MCH 32.0 pg (27-33) 03/03/24 16:20 MCHC 33.2 g/dL (30-55) 03/03/24 16:20 RDW 14.7 % (12.1-15.1) 03/03/24 16:20 Plt Count 162 10^3/cmm (157-399) 03/03/24 16:20 MPV 9.8 fL (7.4-10.4) 03/03/24 16:20 Neut % (Auto) 69.4 % 03/03/24 16:20 Lymph % (Auto) 19.7 % 03/03/24 16:20 [place] % (Auto) 7.1 % 03/03/24 16:20 Eos % (Auto) 2.9 % 03/03/24 16:20 Baso % (Auto) 0.6 % 03/03/24 16:20 Neut # (Auto) 4.29 10^3/uL (1.8-7.7) 03/03/24 16:20 Lymph # (Auto) 1.2 10^3/uL (0.8-4.8) 03/03/24 16:20 [place] # (Auto) 0.4 10^3/uL (0.2-0.9) 03/03/24 16:20 Eos # (Auto) 0.2 10^3/uL (0.0-0.8) 03/03/24 16:20 Baso # (Auto) 0.0 10^3/uL (0.0-0.1) 03/03/24 16:20 Nucleated RBC % (auto) 0 % 03/03/24 16:20 Nucleated RBCs # 0.0 /100WBC 03/03/24 16:20 PT 14.10 SECONDS (12.1-14.9) 03/03/24 16:20 INR 1.06 (0.8-1.2) 03/03/24 16:20 Sodium 125 mmol/L (136-145) L 03/03/24 16:20 Potassium 4.8 mmol/L (3.5-5.1) 03/03/24 16:20 Chloride 89 mmol/L (98-107) L 03/03/24 16:20 Carbon Dioxide 30 mmol/L (22-29) H 03/03/24 16:20 Anion Gap 10.8 (5-19) 03/03/24 16:20 BUN 12 mg/dL (8-23) 03/03/24 16:20 Creatinine 0.7 mg/dL (0.7-1.2) 03/03/24 16:20 GFR Calculation Not Reportable 03/03/24 16:20 Glucose 139 mg/dL (65-115) H 03/03/24 16:20 Calculated Osmolality 262 mOsm/kg (285-295) L 03/03/24 16:20 Calcium 9.1 mg/dL (8.5-10.5) 03/03/24 16:20 Total Bilirubin 0.7 mg/dL (0.15-1.2) 03/03/24 16:20 AST 12 U/L (0-40) 03/03/24 16:20 ALT 8 U/L (0-41) 03/03/24 16:20 Alkaline Phosphatase 56 U/L (40-130) 03/03/24 16:20 Troponin T Baseline 35 ng/L (0-15) H 03/03/24 16:20 Troponin T 120 Minute 31.01 ng/L (0-15) H 03/03/24 18:00 Delta Troponin T -3.99 ABS# (0-10) L 03/03/24 18:00 Total Protein 6.6 g/dL (6.6-8.7) 03/03/24 16:20 Albumin 4.1 g/dL (3.5-5.2) 03/03/24 16:20 Globulin 2.5 g/dL (1.3-4.6) 03/03/24 16:20 Lipase 22 U/L (13-60) 03/03/24 16:20 All radiology interpretation(s) finalized by discharge EKG Data EKG 1: I personally reviewed and interpreted this EKG as follows: Interpretation: Contemporaneous review of resting EKG reveals a ventricular rate of 80 bpm. Rhythm is consistent with atrial fibrillation with a controlled ventricular response. QRS duration is normal. QTc is normal. As slightly leftward axis. No acute ST-T wave changes noted to his does have an extra systole which appears to be unifocal. Discharge Plan Discharge Patient Disposition: Home Clinical Impression: Atrial fibrillation, chronic, Hyponatremia, Volume depletion Condition: Stable Prescriptions: No Action aspirin [Adult Low Dose Aspirin] 81 mg tablet,delayed release (DR/EC) 81 mg PO QDAY omega-3 fatty acids 1,000 mg capsule 1,000 mg PO QDAY Colace 100 mg capsule 100 mg PO DAILY PRN lisinopril 40 mg tablet 40 mg PO DAILY Qty: 90 3RF triamcinolone acetonide 0.5 % cream 1 applic topical DAILY Qty: 15 3RF potassium chloride [Klor-Con M10] 10 mEq tablet,ER particles/crystals 10 meq PO DAILY Qty: 90 3RF furosemide 40 mg tablet 40 mg PO DAILY Qty: 90 3RF azithromycin 250 mg tablet See Rx Instructions PO .COMPLEX Qty: 6 0RF Rx Instructions: For 250 mg dose pack: take 500 mg today (day 1), then 250 mg for 4 days (days 2-5) PO finasteride 5 mg tablet 5 mg PO QDAY Qty: 90 3RF albuterol sulfate 90 mcg/actuation HFA aerosol inhaler 1 puff inhalation Q6H PRN (Reason: shortness of breath or wheezing) Qty: 34 4RF cyanocobalamin (vitamin B-12) [Vitamin B-12] 1,000 mcg tablet 1,000 mcg PO DAILY Qty: 30 6RF fluticasone propion-salmeterol 250-50 mcg/dose blister with device 1 inh inhalation BID Qty: 60 12RF pravastatin 80 mg tablet See Rx Instructions .ROUTE .COMPLEX Qty: 90 3RF Dose Instruction: TAKE 1 TABLET DAILY Rx Instructions: TAKE 1 TABLET DAILY tamsulosin 0.4 mg capsule See Rx Instructions .ROUTE .COMPLEX Qty: 20 1RF Dose Instruction: TAKE 1 CAPSULE TWICE A DAY Rx Instructions: TAKE 1 CAPSULE TWICE A DAY Discharge Orders: Discharge ED (Routine); Ordered 03/03/24 Ordered By: Alberto Moreno Referrals: Jah Ewing MD [Primary Care Provider] - 7-10 days (repeat bmp) Discharge Diet: Advance as tolerated Discharge Activity: Resume usual activity Patient Instructions: Opioid Safety, Pain Management Activity Restrictions/Additional Instructions: As we discussed many things we discovered in the emergency department this evening that your sodium is low. This can cause weakness and potentially issues with dizziness and low blood pressure. We recommend purchasing sports drinks such as Gatorade Powerade etc. and drinking a quart daily. We also recommend salting your food additionally. You should make sure you are drinking at least 1 to 2 quarts of fluid to include the sports drinks and water daily. Continue all your usual medications and have your sodium level rechecked in approximately 7 to 10 days at your primary care office. If you have any new or worsening symptoms you are welcome to return to the emergency department. Coding Level of Care Code ED [employer] [facility] [place]
[2024-03-03 16:23] VITALS: BP 135/91; PULSE 103; O2SAT 98
[2024-03-03] MEDS: sodium chloride 0.9% 1,000 ML 999 ML IV (16:28)
[2024-03-03 16:29] LABS: Basophils % 0.6 %; Eosinophils # 0.2 10^3/uL (0.0-0.8); Eosinophils % 2.9 %; Hematocrit 44.9 % (37-53); Lymphocytes # 1.2 10^3/uL (0.8-4.8); Lymphocytes % 19.7 %; Mean Corpuscular HGB Conc 33.2 g/dL (30-55); Mean Corpuscular Volume 96.4 fl (82-101); Mean Platelet Volume 9.8 fL (7.4-10.4); Monocytes # 0.4 10^3/uL (0.2-0.9); Monocytes % 7.1 %; Neutrophils # 4.29 10^3/uL (1.8-7.7); Neutrophils % 69.4 %; Nucleated Red Blood Cells % 0 %; Platelet Count 162 10^3/cmm (157-399); Red Blood Count 4.66 10^6/uL (3.85-5.65); Red Cell Distribution Width 14.7 % (12.1-15.1); White Blood Count 6.19 10^3/uL (3.29-11.43)
[2024-03-03 16:49] LABS: INR 1.06 (0.8-1.2)
[2024-03-03 16:57] LABS: Alanine Aminotransferase 8 U/L (0-41); Albumin Level 4.1 g/dL (3.5-5.2); Alkaline Phosphatase 56 U/L (40-130); Anion Gap 10.8 (5-19); Aspartate Amino Transferase 12 U/L (0-40); Blood Urea Nitrogen 12 mg/dL (8-23); Calcium 9.1 mg/dL (8.5-10.5); Carbon Dioxide 30 mmol/L (22-29); Chloride 89 mmol/L (98-107); Creatinine Clr Calc Pharmacy 56.3844; Globulin 2.5 g/dL (1.3-4.6); Glucose 139 mg/dL (65-115); Lipase 22 U/L (13-60); Osmolality Calculated 262 mOsm/kg (285-295); Potassium 4.8 mmol/L (3.5-5.1); Sodium 125 mmol/L (136-145); Total Bilirubin 0.7 mg/dL (0.15-1.2); Total Protein 6.6 g/dL (6.6-8.7); Troponin(5th) Baseline 35 ng/L (0-15)
[2024-03-03 17:31] VITALS: BP 146/93; PULSE 84; O2SAT 100
[2024-03-03 18:00] VITALS: BP 133/78; PULSE 90; O2SAT 94
--- NOTE | 2024-03-03 18:17 | ECG_ITS ---
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 Measurements Intervals [place] Rate: 94 P: 0 CA: 0 QRS: -53 QRSD: 113 T: 91 QT: 376 QTc: 471 Interpretive Statements Multifocal atrial rhythm LEFT AXIS DEVIATION [QRS AXIS < -30] MODERATE INTRAVENTRICULAR CONDUCTION DELAY [110+ ms QRS DURATION] NONSPECIFIC ST & T-WAVE ABNORMALITY Compared to ECG 03/03/2024 15:54:01 Left-axis deviation now present Intraventricular conduction delay now present Ventricular premature complex(es) no longer present Aberrant conduction of supraventricular beat(s) no longer present Left anterior fascicular block no longer present T-wave abnormality still present Electronically Signed On 03-03-2024 22:41:02 CDT by Eliane العلي M.D. [id number]
[2024-03-03 18:21] LABS: Troponin 5 2HR 31.01 ng/L (0-15)
[2024-03-03 18:39] LABS: Troponin 5 2HR Delta -3.99 ABS# (0-10)
[2024-03-03 21:29] VITALS: BP 135/82; PULSE 91; RESP 16; TEMP 36.6; O2SAT 98
--- NOTE | 2024-03-06 08:31 | DCPLANNER ---
Spoke with Sabina in Centralized scheduling patient is scheduled for a CT abdomen 03/07/24. No order in patients chart for a bone scan at this time. He also has a scheduled appointment with his PCP this Month.
== END 2024-03-03 21:21 | disposition home or self-care (01) ==
PROVIDERS: Emergency Medicine; Emergency Provider Emergency Medicine; PCP Family Medicine
DX: I48.20 Chronic atrial fibrillation, unspecified (principal); E87.1 Hypo-osmolality and hyponatremia; E86.9 Volume depletion, unspecified; Z79.82 Long term (current) use of aspirin; Z72.0 Tobacco use; I10 Essential (primary) hypertension; E78.5 Hyperlipidemia, unspecified; I25.10 Atherosclerotic heart disease of native coronary artery without angina pectoris
CPT/HCPCS: 36415; 70450; 71045; 80053; 83690; 84484; 85025; 85610; 93005; 99285; J7030

== ENCOUNTER 2024-03-07 14:01 | Outpatient (CLI) | payer MEDICARE, OTHER, SELFPAY ==
--- NOTE | 2024-03-07 14:04 | CT_ITS ---
WS: [id number] CT ABDOMEN PELVIS TECHNIQUE: Noncontrast CT of the abdomen and contrast-enhanced CT of the abdomen and pelvis with rubina nal and sagittal reformatted images. CLINICAL INFORMATION: PROSTATE CANCER COMPARISON: None. DLP: 1006.[address] scans at [facility] use at least one of these dose optimization techniques: automated e xposure control; mA and/or kV adjustment per patient size (includes targeted exams where dose is matc hed to clinical indication); or iterative reconstruction. FINDINGS: Markedly enlarged heterogeneous nodular enhancing prostate with evidence of bladder outlet obstructio n. Diffuse bladder wall thickening. Prostate measures 3.9 x 4.9 x 5.1 cm. Mild thickening of the semi nal vesicles. Mild induration in the perirectal fat may be due to treatment-related changes. No visua lized perirectal lymphadenopathy. Subsegmental atelectasis in the lung bases RIGHT greater than LEFT. Mild diffuse fatty infiltration o f the liver. Normal portal vein and splenic vein. Splenic granulomas. Normal GE junction. Adrenal gla nds are normal. Normal renal parenchymal enhancement. No hydronephrosis. A few splenic granulomas. Mo derate calcified aortic atheromatous disease. Small infrarenal down aortic aneurysm measuring 2.6 x 2 .5 cm AP by transverse unchanged. Extensive lumbar diverticulosis. No evidence of acute diverticulitis. Diffuse esquivel colonic diverticulo sis. Atrophic pancreas. No abdominal or pelvic lymphadenopathy. No visualized blastic bony lesions. Normal ureteral excretion on the delayed images. CT/CT abdomen pelvis wo/w [id number] IMPRESSION: 1. Markedly enlarged heterogeneously enhancing nodular prostate compatible wit h history of prostate neoplasm. Prostate has progressed in size compared to pre vious. 2. Evidence of bladder outlet obstruction with diffuse bladder wall thickening . 3. Induration in the perirectal fat although no visualized lymphadenopathy. Mi ld thickening of the seminal vesicles. 4. Diffuse pancolonic diverticulosis. No evidence of acute diverticulitis. 5. Small infrarenal abdominal aortic aneurysm unchanged.
[2024-03-07] MEDS: iohexol 300 mg/mL 100 mL Btl IV (14:29)
== END 2024-03-07 14:02 | disposition home or self-care (01) ==
LOC: RAD 14:01
PROVIDERS: PCP Family Medicine; Visit Provider Urology
DX: C61 Malignant neoplasm of prostate (principal); N32.0 Bladder-neck obstruction; R93.5 Abnormal findings on diagnostic imaging of other abdominal regions, including retroperitoneum; K57.90 Diverticulosis of intestine, part unspecified, without perforation or abscess without bleeding; I71.43 Infrarenal abdominal aortic aneurysm, without rupture; D73.89 Other diseases of spleen
CPT/HCPCS: 74178; Q9967

== ENCOUNTER → 2024-03-08 10:23 | Outpatient (BNVA) | payer MEDICARE, OTHER, SELFPAY | PROVIDERS: PCP Family Medicine; Visit Provider Family Medicine | DX: Z51.81 Encounter for therapeutic drug level monitoring (principal); E11.9 Type 2 diabetes mellitus without complications; R13.10 Dysphagia, unspecified | CPT/HCPCS: 80053; 83036; 85025 ==

== ENCOUNTER 2024-03-14 09:41 | Outpatient (CLI) | payer MEDICARE, OTHER, SELFPAY ==
--- NOTE | 2024-03-14 10:00 | FL_ITS ---
WS: [id number] Barium swallow and esophagram, 03/14/2024 Clinical Data: Difficulty in swallowing, occasional vomiting. Comparison: None. Fluoroscopy time: 1min [id number] # of spot films: 6 Findings: The patient swallowed the thick and thin barium, and it flowed through the hypopharynx without hesita tion. Minimal aspiration occurred. At the C4-C5 level there was minimal soft tissue posterior indenta tion on the hypopharynx. No stricture, mass, polyp or erosion was seen. The barium entered the esophagus and there was poor motility throughout. No stricture, polyp, mass, erosion or ulcer was noted. Modest reflux did occur. FL/FL barium swallow [id number] Impression: 1. Minimal aspiration of barium into the trachea. 2. Minimal posterior indentation on the hypopharynx at C4-C5 by soft tissue. 3. Minimal reflux without hiatal hernia.
== END 2024-03-14 09:42 | disposition home or self-care (01) ==
PROVIDERS: PCP Family Medicine; Visit Provider Family Medicine
DX: R13.10 Dysphagia, unspecified (principal)
CPT/HCPCS: 74220

== ENCOUNTER 2024-04-15 09:59 | Outpatient (CLI) | payer MEDICARE, OTHER, SELFPAY ==
--- NOTE | 2024-04-15 10:30 | CTR_ITS ---
PROCEDURE INFORMATION: Exam: CT Neck With Contrast Exam date and time: 04/15/2024 10:29 AM Age: 89 years old Clinical indication: Dysphagia / difficulty swallowing; Patient HX: Soft tissue projection at c4-c5 level on esophagus. Difficulty swallowing 2-3 years TECHNIQUE: Imaging protocol: Computed tomography of the neck with contrast. Radiation optimization: All CT scans at this facility use at least one of these dose optimization techniques: automated exposure control; mA and/or kV adjustment per patient size (includes targeted exams where dose is matched to clinical indication); or iterative reconstruction. Contrast material: OMNI 350; Contrast volume: 100 ml; Contrast route: INTRAVENOUS (IV); COMPARISON: RF FL barium swallow [id number] 03/14/2024 9:55 AM RADIATION DOSE METRICS: Total DLP (mGy-cm): 135.93 FINDINGS: Salivary glands: Normal. Glands are normal in size. Pharynx: Unremarkable. No significant tonsillar enlargement. Prevertebral and retropharyngeal spaces: Unremarkable. Larynx: Unremarkable. Epiglottis is normal. Thyroid: Normal. No enlarged or calcified nodules. Trachea: Visualized trachea is unremarkable. Lungs: Emphysematous changes in visualized lung apices. Lymph nodes: Unremarkable. No lymphadenopathy. Vasculature: Mixed soft and calcified plaque at the origin of the right internal carotid artery with somewhat irregular margins raising question of ulceration. Calcified plaque proximal left ICA with mild luminal narrowing. Atherosclerotic calcification of intracranial portion of both internal carotid arteries. 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 The left-sided dural venous sinuses and jugular bulb are smaller in comparison to the right. Bones/joints: Degenerative changes in the cervical spine. Apparent congenital fusion C5-C6. Slight anterolisthesis C7-T1. Soft tissues: Unremarkable. No significant soft tissue swelling. CT/CT neck w con* [id number] IMPRESSION: 1. Mixed soft and calcified plaque at the origin of the right internal carotid artery with somewhat irregular margins raising question of ulceration. 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 2. 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 No obstructive lesion is seen in the superior mediastinum.
[2024-04-15] MEDS: iohexol 350 mg/mL 500 mL Btl (per mL) IV (10:52)
== END 2024-04-15 10:00 | disposition home or self-care (01) ==
LOC: RAD 09:59
PROVIDERS: PCP Family Medicine; Visit Provider Family Medicine
DX: R13.10 Dysphagia, unspecified (principal); J43.9 Emphysema, unspecified; I65.23 Occlusion and stenosis of bilateral carotid arteries
CPT/HCPCS: 70491; Q9967

== ENCOUNTER → 2024-05-14 15:36 | Outpatient (BNVA) | payer MEDICARE, OTHER, SELFPAY | PROVIDERS: PCP Family Medicine; Visit Provider Internal Medicine Cardiovascular Disease | DX: R63.4 Abnormal weight loss (principal); Z68.21 Body mass index [BMI] 21.0-21.9, adult; I25.10 Atherosclerotic heart disease of native coronary artery without angina pectoris; I65.23 Occlusion and stenosis of bilateral carotid arteries; E78.5 Hyperlipidemia, unspecified; I10 Essential (primary) hypertension; I77.810 Thoracic aortic ectasia; I35.1 Nonrheumatic aortic (valve) insufficiency; Z72.0 Tobacco use | CPT/HCPCS: 99214 ==

== ENCOUNTER 2024-07-23 09:20 | Outpatient (CLI) | payer MEDICARE, OTHER, SELFPAY | END 2024-07-23 09:21 | disposition home or self-care (01) | LOC: LAB 09:22 | PROVIDERS: PCP Family Medicine; Visit Provider Urology | DX: C61 Malignant neoplasm of prostate (principal) | CPT/HCPCS: 36415; 84153 ==

== ENCOUNTER → 2024-11-07 11:09 | Outpatient (BNVA) | payer MEDICARE, OTHER, SELFPAY | PROVIDERS: PCP Family Medicine; Visit Provider Family Medicine | DX: Z51.81 Encounter for therapeutic drug level monitoring (principal); I10 Essential (primary) hypertension; R31.0 Gross hematuria; E55.9 Vitamin D deficiency, unspecified; E53.8 Deficiency of other specified B group vitamins; Z13.220 Encounter for screening for lipoid disorders; E87.1 Hypo-osmolality and hyponatremia; C61 Malignant neoplasm of prostate | CPT/HCPCS: 80053; 80061; 82306; 82607; 84153; 85025 ==

== ENCOUNTER → 2024-11-12 09:52 | Outpatient (BNVA) | payer MEDICARE, OTHER, SELFPAY | PROVIDERS: PCP Family Medicine; Visit Provider Nurse Practitioner Family | DX: I25.10 Atherosclerotic heart disease of native coronary artery without angina pectoris (principal); I65.23 Occlusion and stenosis of bilateral carotid arteries; I10 Essential (primary) hypertension; I35.1 Nonrheumatic aortic (valve) insufficiency | CPT/HCPCS: 99213 ==

== ENCOUNTER 2024-11-19 12:05 | Outpatient (CLI) | payer MEDICARE, OTHER, SELFPAY ==
--- NOTE | 2024-11-19 12:45 | USCV_ITS ---
Artie Abraham Age: 89 Gender: M : 1935 Exam Date: 11/19/2024 12:41 Ordering Phys: Ana Mariscal NP Technologist: [place] [facility] [place] Indication: BP: 114 / 64 HR: 67 Rhythm: Sinus Technical Quality: Adequate MEASUREMENTS (Male / Female) Normal Values 2D ECHO LV Ejection Fraction MOD 4C 57.2 % LV Ejection Fraction MOD 2C 52.6 % LV Ejection Fraction 2C AL 54.6 % RA Systolic Volume 4C AL 26.1 ml RA Systolic Volume 4C MOD 26.6 ml LA Sys Volume AL 32.0 cm cubed LA Sys Volume Index AL 20.2 cm cubed/m squared IVC Diameter 1.5 cm M-MODE LA Ao Ratio MM 1.2 AV Cusp Separation MM 1.4 cm DOPPLER AV Peak Velocity 133.0 cm/s LVOT Peak Velocity 71.0 cm/s MV Peak Velocity 113.0 cm/s MV Area PHT 5.4 cm squared Mitral E to A Ratio 121.0 TR Peak Velocity 268.0 cm/s TR Peak Gradient 28.7 mmHg TR Mean Velocity 200.0 cm/s TR Mean Gradient 17.9 mmHg TR Velocity Time Integral 73.4 cm TV Peak E Velocity 40.0 cm/s PV Peak Velocity 97.0 cm/s FINDINGS Left Ventricle LV systolic function has mild reduced with EF of 45 to 50%. Mild global hypokinesis Right Ventricle Grossly normal Right Atrium Normal in size and function Left Atrium Normal in size Mitral Valve Structurally normal mitral valve. Mild mitral regurgitation. Aortic Valve Aortic valve is thickened. Moderate aortic regurgitation. no significant stenosis. Tricuspid Valve Mild tricuspid regurgitation. Pulmonary artery systolic pressure is normal. Pulmonic Valve Not well visualized Pericardium Normal Aorta Normal in size IVC Appears to be normal CONCLUSIONS LV systolic function is mildly reduced with EF of 45-50%. Mild mitral regurgitation. Moderate aortic regurgitation. Mild tricuspid regurgitation. Compared to prior echocardiogram from 2022, no significant changes are seen Reyes Urban MD (Electronically Signed) Final Date: 24 November 2024 14:05 S
== END 2024-11-19 12:06 | disposition home or self-care (01) ==
LOC: RAD 12:07
PROVIDERS: PCP Family Medicine; Visit Provider Nurse Practitioner Family
DX: I35.1 Nonrheumatic aortic (valve) insufficiency (principal); R93.1 Abnormal findings on diagnostic imaging of heart and coronary circulation; I34.0 Nonrheumatic mitral (valve) insufficiency; I35.8 Other nonrheumatic aortic valve disorders; I07.1 Rheumatic tricuspid insufficiency
CPT/HCPCS: 93306